=== PATIENT | female | born 1935 ===

== ENCOUNTER 2018-09-03 15:05 | Observation (INO) | payer MEDICARE, BC ==
[2018-09-03 16:13] LABS: URINE BACTERIA MOD (<OCC); URINE BILIRUBIN NEGATIVE (NEGATIVE); URINE BLOOD 3+ (NEGATIVE); URINE CLARITY Turbid (Clear); URINE COLOR Yellow (YELLOW); URINE GLUCOSE (UA) NORMAL (Normal); URINE LEUKOCYTE ESTERASE 3+ Leu/uL (Negative); URINE PROTEIN 2+ mg/dL (NEGATIVE); URINE UROBILINOGEN NORMAL mg/dL (0.2-1.0); WBC CLUMPS MANY /hpf
[2018-09-03 17:00] LABS: BASO # 0.1 K/uL (0.0-0.2); BASO % 0.8 % (0.0-2.0); EOS % 0.3 % (0.0-4.0); HEMOGLOBIN 13.1 g/dL (11.0-16.0); LYMPH # 1.4 K/uL (1.0-4.3); LYMPH % 12.2 % (20.0-40.0); MEAN CELL VOLUME 92.2 fL (81.0-99.0); MEAN CORPUSCULAR HEMOGLOBIN 30.2 pg (27.0-31.0); MEAN CORPUSCULAR HGB CONC 32.8 g/dL (33.0-37.0); MEAN PLATELET VOLUME 8.9 fL (7.2-11.7); MONO # 0.8 K/uL (0.0-0.8); MONO % 6.9 % (0.0-10.0); NEUT # 8.8 K/uL (1.8-7.0); NEUT % 79.8 % (50.0-75.0); NRBC % 0.1 % (0.0-2.0); RBC 4.35 Mil/uL (3.80-5.20); RED CELL DISTRIBUTION WIDTH 13.8 % (11.5-14.5); WHITE BLOOD COUNT 11.1 K/uL (4.8-10.8)
[2018-09-03 17:12] LABS: ALB/GLOB RATIO 1.4 (1.0-2.1); ALBUMIN 4.3 g/dL (3.5-5.0); ALT/SGPT 25 U/L (9-52); AST/SGOT 38 U/L (14-36); BLOOD UREA NITROGEN 13 mg/dL (7-17); GFR NON-AFRICAN AMERICAN > 60
--- NOTE | 2018-09-03 17:28 | C.PDOC ---
Time Seen by Provider: 09/03/18 15:53 Chief Complaint (Nursing): Female Genitourinary Past Medical History Vital Signs: Last Vital Signs Temp 97.9 F 09/03/18 15:16 Pulse 110 H 09/03/18 15:16 Resp 14 09/03/18 15:16 BP 132/77 09/03/18 15:16 Pulse Ox 98 09/03/18 15:16 - Medical History PMH: Hiatal Hernia (Secondary to Acid Reflux) Denies: Chronic Kidney Disease - Social History Hx Alcohol Use: No Hx Substance Use: No - Immunization History Hx Influenza Vaccination: Yes ED Course And Treatment - Laboratory Results Result Diagrams: 09/05/18 07:40 09/05/18 07:40 O2 Sat by Pulse Oximetry: 98 Disposition Counseled Patient/Family Regarding: Studies Performed, Diagnosis - Disposition Disposition: HOSPITALIZED Disposition Time: 17:27 Condition: STABLE - POA Present On Arrival: None - Clinical Impression Clinical Impression: Acute urinary retention, UTI (urinary tract infection)
[2018-09-03] MEDS ORDERED: Sodium Chloride 0.9% 500 ML IV ONE (18:00)
[2018-09-03] MEDS ORDERED: cefTRIAXone 1 gm 1 GM/100 ML BAG IVPB ONE (18:00)
--- NOTE | 2018-09-03 21:26 | C.PDOC ---
History Of Present Illness 82 year old female, whose past medical history includes osteoarthritis and bronchitis, presents to the ED for evaluation of UTI symptoms. Patient complains of urinary retention, hesitancy, frequency and lower abdominal pain. Patient states she has experienced similar symptoms in the past, and was given pills by her doctor. Patient was evaluated by her PMD today, and advised to present to the ED for evaluation of hematuria and possible UTI. Patient denies fever, chills, and vomiting. Time Seen by Provider: 09/03/18 15:53 Chief Complaint (Nursing): Female Genitourinary History Per: Patient History/Exam Limitations: no limitations Onset/Duration Of Symptoms: Hrs Current Symptoms Are (Timing): Still Present Quality Of Discomfort: "Pain" Additional History Per: Patient Past Medical History Reviewed: Historical Data, Nursing Documentation, Vital Signs Vital Signs: Last Vital Signs Temp 98.1 F 09/03/18 20:45 Pulse 102 H 09/03/18 20:45 Resp 18 09/03/18 20:45 BP 117/73 09/03/18 20:45 Pulse Ox 98 09/03/18 21:17 - Medical History PMH: Hiatal Hernia (Secondary to Acid Reflux) Denies: Chronic Kidney Disease Surgical History: No Surg Hx Family History: States: Unknown Family Hx - Social History Hx Alcohol Use: No Hx Substance Use: No - Immunization History Hx Influenza Vaccination: Yes Review Of Systems Constitutional: Negative for: Fever, Chills Genitourinary: Positive for: Dysuria, Frequency, Hematuria Physical Exam - Physical Exam Appears: Non-toxic, No Acute Distress, Other (uncomfortable ) Skin: Normal Color, Warm, Dry Head: Atraumatic, Normacephalic Eye(s): bilateral: Normal Inspection Oral Mucosa: Moist Neck: Supple Chest: Symmetrical, No Deformity, No Tenderness Cardiovascular: Rhythm Regular, No Murmur Respiratory: Normal Breath Sounds, No Rales, No Rhonchi, No Wheezing Gastrointestinal/Abdominal: Soft, Tenderness (suprapubic ), No Guarding, No Rebound Back: No CVA Tenderness Extremity: Normal ROM, Capillary Refill (less than 2 seconds ) Neurological/Psych: Oriented x3, Normal Speech, Normal Cognition ED Course And Treatment - Laboratory Results Result Diagrams: 09/05/18 07:40 09/05/18 07:40 O2 Sat by Pulse Oximetry: 98 (on RA ) Pulse Ox Interpretation: Normal Medical Decision Making Medical Decision Making: Progress: Patient unable to urinate. Nursing staff placed pritchard in, able to obtain 10cc of urine urinalysis and urine culture ordered. Case discussed with Dr. Nash. Disposition Counseled Patient/Family Regarding: Studies Performed, Diagnosis - Disposition Disposition: HOSPITALIZED Disposition Time: 17:00 Condition: STABLE - Clinical Impression Clinical Impression: Acute urinary retention, UTI (urinary tract infection) - Scribe Statement The provider has reviewed the documentation as recorded by the Scribe (Doreen Scott) Provider Attestation: All medical record entries made by the Scribe were at my direction and personally dictated by me. I have reviewed the chart and agree that the record accurately reflects my personal performance of the history, physical exam, medical decision making, and the department course for this patient. I have also personally directed, reviewed, and agree with the discharge instructions and disposition.
[2018-09-03] MEDS: Enoxaparin 40 mg Syringe SC SCH (22:43)
[2018-09-03] MEDS: Sodium Chloride 0.9% 1,000 ML IV SCH (22:44)
[2018-09-04 02:44] VITALS: RESP 20
[2018-09-04] MEDS: Enoxaparin 40 mg Syringe SC SCH (10:59)
[2018-09-04] MEDS: Sodium Chloride 0.9% 1,000 ML IV SCH ×2 (11:00→19:55)
--- NOTE | 2018-09-04 12:01 | PCM.URO ---
Urology Progress Note - Objective Lab Studies: Reviewed (gu dx: hematuria and retention and possible uti gu plans: pritchard to sd please order ct scan and urine cytology pt will require cystoscopy // timing to be discussed -- most likely out pt thanks for gu consult full note to be dictated) Lab Results Last 24 Hours: Laboratory Results - last 24 hr 09/03/18 09/03/18 09/03/18 15:57 16:56 16:56 WBC 11.1 H RBC 4.35 Hgb 13.1 Hct 40.1 MCV 92.2 MCH 30.2 MCHC 32.8 L RDW 13.8 Plt Count 209 MPV 8.9 Neut % (Auto) 79.8 H Lymph % (Auto) 12.2 L [place] % (Auto) 6.9 Eos % (Auto) 0.3 Baso % (Auto) 0.8 Neut # (Auto) 8.8 H Lymph # (Auto) 1.4 [place] # (Auto) 0.8 Eos # (Auto) 0.0 Baso # (Auto) 0.1 Sodium 133 Potassium 4.7 Chloride 99 Carbon Dioxide 26 Anion Gap 12 BUN 13 Creatinine 0.7 Est GFR ( Amer) > 60 Est GFR (Non-Af Amer) > 60 Random Glucose 114 H Hemoglobin A1c Calcium 9.0 Total Bilirubin 0.5 AST 38 H ALT 25 Alkaline Phosphatase 82 Total Protein 7.4 Albumin 4.3 Globulin 3.1 Albumin/Globulin Ratio 1.4 TSH 3rd Generation Urine Color Yellow Urine Clarity Turbid Urine pH 5.0 Ur Specific [place] 1.017 Urine Protein 2+ H Urine Glucose (UA) Normal Urine Ketones Negative Urine Blood 3+ H Urine Nitrate Negative Urine Bilirubin Negative Urine Urobilinogen Normal Ur Leukocyte Esterase 3+ H Urine WBC (Auto) 1611 H Urine RBC (Auto) 561 H Urine WBC Clumps (Auto) Many H Urine Bacteria Mod H 09/03/18 09/03/18 22:01 22:01 WBC RBC Hgb Hct MCV MCH MCHC RDW Plt Count MPV Neut % (Auto) Lymph % (Auto) [place] % (Auto) Eos % (Auto) Baso % (Auto) Neut # (Auto) Lymph # (Auto) [place] # (Auto) Eos # (Auto) Baso # (Auto) Sodium Potassium Chloride Carbon Dioxide Anion Gap BUN Creatinine Est GFR ( Amer) Est GFR (Non-Af Amer) Random Glucose Hemoglobin A1c 6.1 Calcium Total Bilirubin AST ALT Alkaline Phosphatase Total Protein Albumin Globulin Albumin/Globulin Ratio TSH 3rd Generation 1.29 Urine Color Urine Clarity Urine pH Ur Specific [place] Urine Protein Urine Glucose (UA) Urine Ketones Urine Blood Urine Nitrate Urine Bilirubin Urine Urobilinogen Ur Leukocyte Esterase Urine WBC (Auto) Urine RBC (Auto) Urine WBC Clumps (Auto) Urine Bacteria Intake & Output: Intake & Output 09/03/18 09/04/18 09/04/18 18:59 06:59 18:59 Intake Total 1100 Output Total 150 2200 Balance -150 -1100 Weight 150 lb Intake: Intake, IV Amount 850 Right Antecubital 850 Oral 250 Output: Urine 150 2200 Urethral (Pritchard) 2200 Other: # Bowel Movements 0 Vital Signs: Vital Signs - 24 hr 09/03/18 09/03/18 09/03/18 15:16 18:29 20:45 Temperature 97.9 F 97.9 F 98.1 F Pulse Rate 110 H 92 H 102 H Respiratory 14 18 18 Rate Blood Pressure 132/77 121/65 117/73 O2 Sat by Pulse 98 98 97 Oximetry 09/03/18 09/03/18 09/03/18 21:17 21:43 23:14 Temperature 97.9 F Pulse Rate 80 Respiratory 20 Rate Blood Pressure 105/63 O2 Sat by Pulse 98 98 95 Oximetry 09/04/18 08:00 Temperature 97.5 F L Pulse Rate 101 H Respiratory 20 Rate Blood Pressure 100/66 O2 Sat by Pulse 95 Oximetry
[2018-09-04 12:09] LABS: BASO # 0.1 K/uL (0.0-0.2); BASO % 0.7 % (0.0-2.0); EOS % 0.5 % (0.0-4.0); HEMOGLOBIN 12.4 g/dL (11.0-16.0); LYMPH # 1.6 K/uL (1.0-4.3); LYMPH % 21.1 % (20.0-40.0); MEAN CELL VOLUME 93.3 fL (81.0-99.0); MEAN CORPUSCULAR HEMOGLOBIN 31.3 pg (27.0-31.0); MEAN CORPUSCULAR HGB CONC 33.5 g/dL (33.0-37.0); MEAN PLATELET VOLUME 9.4 fL (7.2-11.7); MONO # 0.7 K/uL (0.0-0.8); MONO % 9.6 % (0.0-10.0); NEUT # 5.1 K/uL (1.8-7.0); NEUT % 68.1 % (50.0-75.0); RBC 3.96 Mil/uL (3.80-5.20); RED CELL DISTRIBUTION WIDTH 13.9 % (11.5-14.5); WHITE BLOOD COUNT 7.5 K/uL (4.8-10.8)
[2018-09-04 12:23] LABS: BLOOD UREA NITROGEN 10 mg/dL (7-17); CALCIUM 8.5 mg/dl (8.6-10.4); GFR NON-AFRICAN AMERICAN > 60
--- NOTE | 2018-09-04 14:20 | US ---
Date of service: 09/04/2018 HISTORY: pyuria/hematuria COMPARISON: None. TECHNIQUE: Sonographic evaluation of the abdomen. FINDINGS: LIVER: Measures 15.7 cm. Diffuse increased echogenicity of the liver parenchyma. No mass. No intrahepatic bile duct dilatation. GALLBLADDER: Unremarkable. No gallstones. COMMON BILE DUCT: Measures 5 mm. No stones. No dilatation. PANCREAS: Limited visualization due to obscuring bowel gas. RIGHT KIDNEY: Measures 10.4 x 3.6 x 3.9cm. Diffuse increased echogenicity. No calculus, mass, or hydronephrosis. LEFT KIDNEY: Measures 10.7 x 4.7 x 4.9cm. Diffuse increased echogenicity. No calculus, mass, or hydronephrosis. SPLEEN: Normal in size and contour. No mass. AORTA: No aneurysmal dilatation. IVC: Unremarkable. OTHER FINDINGS: None. IMPRESSION: Bilateral increased renal parenchymal echogenicity can be seen with medical renal disease. No hydronephrosis. No focal renal mass or abscess seen. No shadowing renal calculi noted. No additional imaging findings in this patient who presents with pyuria and hematuria. Follow-up recommended.
--- NOTE | 2018-09-04 14:23 | US ---
Date of service: 09/04/2018 PROCEDURE: Ultrasound of the Bladder HISTORY: pyuria/hematuria COMPARISON: None available. TECHNIQUE: Sonographic evaluation of the bladder was performed. FINDINGS: Unremarkable without intraluminal debris. Valero catheter in place. Bladder wall diffuse thickening at 7 mm. No calculus or gross mass lesion. No free fluid in pelvis. Prevoid Volume: 368 cc. Post void residual: Not applicable Valero catheter in place. IMPRESSION: Diffuse bladder wall thickening-inflammatory edematous reaction is 1 consideration in this patient with pyuria and hematuria. Nonspecific bladder wall hypertrophy diffuse is another. No focal eccentric mural thickening seen. No intraluminal bladder masses noted. No bladder calculi noted. Urological consultation/follow-up recommended.
--- NOTE | 2018-09-04 19:58 | CP.PCM.HP ---
History of Present Illness - History of Present Illness History of Present Illness: 82 y/o lady with DM2 presented in ER with severe dysuria, frequency, urgency, suprapubic discomfort, leukocytosis, pyuria and microhematuria. She has hx of uti, DM, depression. She was placed under obs. Still w/u pending. Will continue iv antbx and ivf. Urology consult and nephology consults appreciated. Present on Admission - Present on Admission Any Indicators Present on Admission: No Review of Systems - Review of Systems Systems not reviewed;Unavailable: Altered Mental Status - Constitutional Constitutional: Fatigue, Malaise, Weakness - EENT Eyes: As Per HPI Nose/Mouth/Throat: As Per HPI - Cardiovascular Cardiovascular: As Per HPI - Respiratory Respiratory: As Per HPI - Gastrointestinal Gastrointestinal: As Per HPI - Genitourinary Genitourinary: Change in Urinary Stream, Difficulty Urinating, Dysuria, Pyuria, Urinary Frequency, Urinary Hesitance, Urinary Urgency, Freq UTI - Musculoskeletal Musculoskeletal: Abnormal Gait, Muscle Weakness - Integumentary Integumentary: As Per HPI - Neurological Neurological: As Per HPI - Psychiatric Psychiatric: As Per HPI - Endocrine Endocrine: As Per HPI Past Patient History - Past Social History Smoking Status: Never Smoked - CARDIAC Hx Cardiac Disorders: No - PULMONARY Hx Respiratory Disorders: No - NEUROLOGICAL Hx Neurological Disorder: No - HEENT Hx HEENT Problems: No - RENAL Hx Chronic Kidney Disease: No - ENDOCRINE/METABOLIC Hx Endocrine Disorders: No - HEMATOLOGICAL/ONCOLOGICAL Hx Blood Disorders: No - INTEGUMENTARY Hx Dermatological Problems: No - MUSCULOSKELETAL/RHEUMATOLOGICAL Hx Musculoskeletal Disorders: No - GASTROINTESTINAL Hx Gastrointestinal Disorders: Yes Hx Ulcer: Yes (Secondary to Acid Reflux) - GENITOURINARY/GYNECOLOGICAL Hx Urinary Tract Infection: Yes (w/hematuria) - PSYCHIATRIC Hx Substance Use: No - SURGICAL HISTORY Hx Surgeries: Yes 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" Meds Allergies/Adverse Reactions: Allergies Allergy/AdvReac Type Severity Reaction Status Date / Time No Known Allergies Allergy Verified 09/03/18 16:45 Physical Exam - Constitutional Appears: Chronically Ill - Head Exam Head Exam: ATRAUMATIC, NORMAL INSPECTION, NORMOCEPHALIC - Eye Exam Eye Exam: Normal appearance - ENT Exam ENT Exam: Mucous Membranes Dry - Neck Exam Neck exam: Positive for: Full Rom - Respiratory Exam Respiratory Exam: NORMAL BREATHING PATTERN - Cardiovascular Exam Cardiovascular Exam: REGULAR RHYTHM, +S1, +S2 - GI/Abdominal Exam GI & Abdominal Exam: Tenderness Additional comments: suprapuibic tenderness - Extremities Exam Extremities exam: Positive for: normal inspection - Back Exam Back exam: NORMAL INSPECTION - Neurological Exam Neurological exam: Alert, CN II-XII Intact, Oriented x3 - Psychiatric Exam Psychiatric exam: Anxious Results - Vital Signs Recent Vital Signs: Last Vital Signs Temp 99.6 F 09/04/18 17:33 Pulse 90 09/04/18 17:33 Resp 20 09/04/18 17:33 BP 100/62 09/04/18 17:33 Pulse Ox 98 09/04/18 17:33 - Labs Result Diagrams: 09/04/18 11:51 09/04/18 11:51 Labs: Laboratory Results - last 24 hr 09/03/18 09/03/18 09/04/18 22:01 22:01 11:51 WBC 7.5 RBC 3.96 Hgb 12.4 Hct 36.9 MCV 93.3 MCH 31.3 H MCHC 33.5 RDW 13.9 Plt Count 192 MPV 9.4 Neut % (Auto) 68.1 Lymph % (Auto) 21.1 [place] % (Auto) 9.6 Eos % (Auto) 0.5 Baso % (Auto) 0.7 Neut # (Auto) 5.1 Lymph # (Auto) 1.6 [place] # (Auto) 0.7 Eos # (Auto) 0.0 Baso # (Auto) 0.1 Sodium Potassium Chloride Carbon Dioxide Anion Gap BUN Creatinine Est GFR ( Amer) Est GFR (Non-Af Amer) Random Glucose Hemoglobin A1c 6.1 Calcium TSH 3rd Generation 1.29 09/04/18 11:51 WBC RBC Hgb Hct MCV MCH MCHC RDW Plt Count MPV Neut % (Auto) Lymph % (Auto) [place] % (Auto) Eos % (Auto) Baso % (Auto) Neut # (Auto) Lymph # (Auto) [place] # (Auto) Eos # (Auto) Baso # (Auto) Sodium 135 Potassium 3.9 Chloride 101 Carbon Dioxide 29 Anion Gap 8 L BUN 10 Creatinine 0.7 Est GFR ( Amer) > 60 Est GFR (Non-Af Amer) > 60 Random Glucose 123 H Hemoglobin A1c Calcium 8.5 L TSH 3rd Generation Assessment & Plan (1) Diabetes 1.5, managed as type 2 Status: Chronic (2) Acute urinary retention Status: Acute (3) UTI (urinary tract infection) Status: Acute (4) Depression Status: Chronic (5) Debility Status: Acute - Assessment and Plan (Free Text) Plan: Continue present rx Will follow urology and nephrology consults. DC when stable
[2018-09-05 07:52] LABS: BASO # 0.1 K/uL (0.0-0.2); BASO % 1.1 % (0.0-2.0); EOS # 0.1 K/uL (0.0-0.7); EOS % 1.5 % (0.0-4.0); HEMOGLOBIN 12.8 g/dL (11.0-16.0); LYMPH # 2.3 K/uL (1.0-4.3); MEAN CORPUSCULAR HEMOGLOBIN 31.6 pg (27.0-31.0); MEAN CORPUSCULAR HGB CONC 33.9 g/dL (33.0-37.0); MONO # 0.8 K/uL (0.0-0.8); NEUT # 3.8 K/uL (1.8-7.0); NEUT % 53.4 % (50.0-75.0); NRBC % 0.1 % (0.0-2.0); RBC 4.04 Mil/uL (3.80-5.20); RED CELL DISTRIBUTION WIDTH 13.7 % (11.5-14.5); WHITE BLOOD COUNT 7.1 K/uL (4.8-10.8)
[2018-09-05 08:02] LABS: BLOOD UREA NITROGEN 12 mg/dL (7-17); CALCIUM 8.7 mg/dl (8.6-10.4); GFR NON-AFRICAN AMERICAN > 60
[2018-09-05] MEDS: Enoxaparin 40 mg Syringe SC SCH (11:39)
[2018-09-05] MEDS: Sodium Chloride 0.9% 1,000 ML IV SCH (11:59)
[2018-09-05 16:34] VITALS: BP 121/72; PULSE 79; TEMP 97.6; O2SAT 98
--- NOTE | 2018-09-05 17:36 | CP.PCM.PN ---
Subjective - Date & Time of Evaluation Date of Evaluation: 09/05/18 Time of Evaluation: 17:36 - Subjective Subjective: No c/o avoid urine with no problems, no suprapubic tenderness no dysuria no hematuria no frequency. F/U with urology, f/u in my office in 1 week, continue antibx PO. Objective - Vital Signs/Intake and Output Vital Signs (last 24 hours): Temp Pulse Resp BP Pulse Ox 97.6 F 79 20 121/72 98 09/05/18 16:31 09/05/18 16:31 09/05/18 16:31 09/05/18 16:31 09/05/18 16:31 - Medications Medications: Current Medications Ezetimibe (Zetia) 10 mg PO DAILY [facility] Last Admin: 09/05/18 11:39 Dose: 10 mg Enoxaparin Sodium (Lovenox) 40 mg SC DAILY [facility] Last Admin: 09/05/18 11:39 Dose: 40 mg Folic Acid (Folic Acid) 1 mg PO DAILY [facility] Last Admin: 09/05/18 11:39 Dose: 1 mg Ceftriaxone Sodium 1 gm/ (Sodium Chloride) 100 mls @ 100 mls/hr IVPB DAILY [facility]; Protocol Last Admin: 09/05/18 11:40 Dose: 100 mls/hr Sodium Chloride (Sodium Chloride 0.9%) 1,000 mls @ 85 mls/hr IV .[id number] [facility] Last Admin: 09/05/18 11:59 Dose: Not Given Paroxetine HCl (Paxil) 20 mg PO DAILY [facility] Last Admin: 09/05/18 11:39 Dose: 20 mg Pneumococcal Polyvalent Vaccine (Pneumovax 23 Vaccine) 0.5 ml IM .ONCE ONE Stop: 09/06/18 23:00 - Labs Labs: 09/05/18 07:40 09/05/18 07:40 - Constitutional Appears: Well, Non-toxic - Head Exam Head Exam: ATRAUMATIC, NORMAL INSPECTION, NORMOCEPHALIC - Eye Exam Eye Exam: Normal appearance - ENT Exam ENT Exam: Mucous Membranes Moist - Neck Exam Neck Exam: Full ROM - Respiratory Exam Respiratory Exam: Clear to Ausculation Bilateral - Cardiovascular Exam Cardiovascular Exam: REGULAR RHYTHM, +S1, +S2 - GI/Abdominal Exam GI & Abdominal Exam: Soft, Normal Bowel Sounds - Extremities Exam Extremities Exam: Normal Inspection - Neurological Exam Neurological Exam: Alert, Awake, CN II-XII Intact, Normal Gait, Oriented x3 - Psychiatric Exam Psychiatric exam: Normal Affect - Skin Skin Exam: Normal Color Assessment and Plan (1) Diabetes 1.5, managed as type 2 Status: Chronic (2) Acute urinary retention Status: Acute (3) UTI (urinary tract infection) Status: Acute (4) Depression Status: Chronic (5) Debility Status: Acute - Assessment and Plan (Free Text) Plan: As above.
--- NOTE | 2018-09-05 19:15 | PCM.URO ---
Urology Progress Note - General General: No Complaints, Tolerating Diet - Subjective Abdominal Pain: No Flank Pain: No Nausea: No Vomiting: No Voiding Well: No (pritchard catheter in place) Hematuria: No Dsypnea: No Chest Pain: No Fever & Chills: No - Objective Lab Studies: Reviewed Lab Results Last 24 Hours: Laboratory Results - last 24 hr 09/05/18 09/05/18 07:40 07:40 WBC 7.1 RBC 4.04 Hgb 12.8 Hct 37.6 MCV 93.0 MCH 31.6 H MCHC 33.9 RDW 13.7 Plt Count 204 MPV 9.0 Neut % (Auto) 53.4 Lymph % (Auto) 33.0 [place] % (Auto) 11.0 H Eos % (Auto) 1.5 Baso % (Auto) 1.1 Neut # (Auto) 3.8 Lymph # (Auto) 2.3 [place] # (Auto) 0.8 Eos # (Auto) 0.1 Baso # (Auto) 0.1 Sodium 138 Potassium 4.2 Chloride 104 Carbon Dioxide 28 Anion Gap 10 BUN 12 Creatinine 0.7 Est GFR ( Amer) > 60 Est GFR (Non-Af Amer) > 60 Random Glucose 101 Calcium 8.7 Intake & Output: Intake & Output 09/05/18 09/05/18 09/06/18 06:59 18:59 06:59 Intake Total 400 Output Total 1000 Balance -600 Intake: Oral 400 Output: Urine 1000 Urethral (Pritchard) 1000 Other: # Bowel Movements 1 Vital Signs: Vital Signs - 24 hr 09/04/18 09/05/18 09/05/18 23:45 08:45 16:31 Temperature 98.6 F 98.2 F 97.6 F Pulse Rate 93 H 84 79 Respiratory 20 20 20 Rate Blood Pressure 132/70 134/63 121/72 O2 Sat by Pulse 95 96 98 Oximetry Imaging Studies: Reviewed - Physical Exam Abdominal Exam: Soft, Non-Tender, Non-Distended Urinary Catheter Draining Well: Yes Urine Color: Clear, Yellow Extremities: Normal: Bilateral - Plan Discontinue Urinary Catheter: Yes Intake & Output: Yes Additional Information: IMP: stable clinically. Hx of recurrent UTI. Possible previous retention. Rec/P: Antibiotic rx. Trial of voiding. Discussed w patient re further w/u. Cysto t/f. Will discuss w primary YS - Date & Time of Note Date: 09/05/18 Time: 13:45
--- NOTE | 2018-09-06 05:06 | CP.PCM.CON ---
History of Present Illness - History of Present Illness History of Present Illness: REASONS FOR CONSULT : UTI INCREASED RENAL ECHOGENICITY ON RENAL SONOGRAM PT WAS SEEN AND EXAMINED PRIOR TO HER D/C .. CASE D/W DR HASSAN AT LENGTH PRESENTED WITH UTI .. STATES SHE WOULD HAVE ONE UTI EVERY YEARS FOR MANY YEARS BUT LATELY SHE WOULD HAVE UTI MORE FREQEUNTLY History Of Present Illness 82 year old female, whose past medical history includes osteoarthritis and bronchitis, presents to the ED for evaluation of UTI symptoms. Patient complains of urinary retention, hesitancy, frequency and lower abdominal pain. Patient states she has experienced similar symptoms in the past, and was given pills by her doctor. Patient was evaluated by her PMD today, and advised to present to the ED for evaluation of hematuria and possible UTI. Patient denies fever, chills, and vomiting. Time Seen by Provider: 09/03/18 15:53 Chief Complaint (Nursing): Female Genitourinary History Per: Patient History/Exam Limitations: no limitations Onset/Duration Of Symptoms: Hrs Current Symptoms Are (Timing): Still Present Quality Of Discomfort: "Pain" Additional History Per: Patient Past Medical History Reviewed: Historical Data, Nursing Documentation, Vital Signs Vital Signs: Last Vital Signs Temp 98.1 F 09/03/18 20:45 Pulse 102 H 09/03/18 20:45 Resp 18 09/03/18 20:45 BP 117/73 09/03/18 20:45 Pulse Ox 98 09/03/18 21:17 Past Patient History - Past Social History Smoking Status: Never Smoked - CARDIAC Hx Cardiac Disorders: No - PULMONARY Hx Respiratory Disorders: No - NEUROLOGICAL Hx Neurological Disorder: No - HEENT Hx HEENT Problems: No - RENAL Hx Chronic Kidney Disease: No - ENDOCRINE/METABOLIC Hx Endocrine Disorders: No - HEMATOLOGICAL/ONCOLOGICAL Hx Blood Disorders: No - INTEGUMENTARY Hx Dermatological Problems: No - MUSCULOSKELETAL/RHEUMATOLOGICAL Hx Musculoskeletal Disorders: No - GASTROINTESTINAL Hx Gastrointestinal Disorders: Yes Hx Ulcer: Yes (Secondary to Acid Reflux) - GENITOURINARY/GYNECOLOGICAL Hx Urinary Tract Infection: Yes (w/hematuria) - PSYCHIATRIC Hx Substance Use: No - SURGICAL HISTORY Hx Surgeries: Yes 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" Meds Home Medications: Home Medication List Medication Instructions Recorded Confirmed Type Amoxicillin/Clavulanate [Augmentin 1 tab PO BID 10 Days #20 tab 09/05/18 Rx 875 MG-125 MG] Ezetimibe [Zetia] 10 mg PO DAILY tab 09/05/18 Rx Folic Acid 1 mg PO DAILY tab 09/05/18 Rx PARoxetine [Paxil] 20 mg PO DAILY tab 09/05/18 Rx Allergies/Adverse Reactions: Allergies Allergy/AdvReac Type Severity Reaction Status Date / Time No Known Allergies Allergy Verified 09/03/18 16:45 Results - Vital Signs Recent Vital Signs: Last Vital Signs Temp 97.6 F 09/05/18 16:31 Pulse 79 09/05/18 16:31 Resp 20 09/05/18 16:31 BP 121/72 09/05/18 16:31 Pulse Ox 98 09/05/18 16:31 - Labs Result Diagrams: 09/05/18 07:40 09/05/18 07:40 Labs: Laboratory Results - last 24 hr 09/05/18 09/05/18 07:40 07:40 WBC 7.1 RBC 4.04 Hgb 12.8 Hct 37.6 MCV 93.0 MCH 31.6 H MCHC 33.9 RDW 13.7 Plt Count 204 MPV 9.0 Neut % (Auto) 53.4 Lymph % (Auto) 33.0 [place] % (Auto) 11.0 H Eos % (Auto) 1.5 Baso % (Auto) 1.1 Neut # (Auto) 3.8 Lymph # (Auto) 2.3 [place] # (Auto) 0.8 Eos # (Auto) 0.1 Baso # (Auto) 0.1 Sodium 138 Potassium 4.2 Chloride 104 Carbon Dioxide 28 Anion Gap 10 BUN 12 Creatinine 0.7 Est GFR ( Amer) > 60 Est GFR (Non-Af Amer) > 60 Random Glucose 101 Calcium 8.7 Assessment & Plan - Assessment and Plan (Free Text) Assessment: INP : RECURRENT UTI INCREASED RENAL ECHOGENICITY ON SONOGRAM SUGGESTIVE OF MEDICAL CKD RENAL FUNCTION WNL MMP OUTLINED ABOVE P : PT VOIDED AFTER FOLY WAS REMOVED ..PT CAN BE D/C C/O PO ANTIBIOTICS CAN BE F/U AN OUT PT WILL REPEAT RENAL SONOGRAM AN OUT PT - Date & Time Date: 09/05/18 Time: 14:00
[2018-09-06] MEDS ORDERED: Pneumococcal 23-Valent Vaccine IM ONE (22:59)
== END 2018-09-05 18:33 | disposition home or self-care (01) ==
LOC: C.ER 15:05 → C.3T 17:29
PROVIDERS: ADMIT Internal Medicine; ATTEND Internal Medicine
DX: N39.0 Urinary tract infection, site not specified (principal); F32.9 Major depressive disorder, single episode, unspecified; E13.9 Other specified diabetes mellitus without complications; K21.9 Gastro-esophageal reflux disease without esophagitis; R31.29 Other microscopic hematuria; Z79.899 Other long term (current) drug therapy; Z87.440 Personal history of urinary (tract) infections
CPT/HCPCS: 36415; 76700; 76856; 80048; 80053; 81001; 83036; 84443; 85025; 87040; 87086; 88104; 96365; 97116; 97162; 99285; G0378; G8978; G8979; J0696; J1650; J7030